=== PATIENT | female | born 1945 | race Caucasian/White ===

== ENCOUNTER → 2019-12-22 10:15 | Outpatient (CLI) | payer MEDICARE, SELFPAY ==
--- NOTE | ~2019-12-22 | MM_ITS ---
EXAMINATION: MM screening [facility] BI w dave HISTORY: Screening mammogram TECHNIQUE: Craniocaudal and mediolateral oblique 3-D tomosynthesis images were obtained and synthetic 2-D images were generated. CAD analysis was submitted and interpreted. COMPARISON: 11/29/2018, 11/09/2017, 10/15/2016 bilateral digital screening mammogram examinations BREAST PARENCHYMAL COMPOSITION: The breasts are almost entirely fatty. FINDINGS: Stable circumscribed benign intramammary lymph node on the left, upper outer quadrant. Ther e is no evidence of suspicious mass, calcification, or architectural distortion to suggest malignancy in either breast. There has been no suspicious interval change. IMPRESSION: 1. No mammographic evidence of malignancy. 2. Recommend routine screening mammography in one year. BI-RADS Category 2: Benign finding(s). Reviewed, dictated and finalized at location A. SALTER
--- NOTE | ~2019-12-22 | DEXA_ITS ---
Bone Density Report Name: Chelsea Thomas Age: 74 Sex: Female Ethnicity: White Date of : 1945 Indication: postmenopausal; screening for osteoporosis; height loss; Referring Provider: AKIL PIMENTEL Study: Bone densitometry was performed. Exam Date: December 22, 2019 Accession number: [id number] Bone Density: Region BMD T-score Z-score Classification AP Spine (L1-L4) 1.046 0.0 2.3 Normal Femoral Neck (Left) 0.724 -1.1 0.8 Osteopenia Total Hip (Left) 0.952 0.1 1.8 Normal Femoral Neck (Right) 0.758 -0.8 1.1 Normal Total Hip (Right) 0.948 0.0 1.7 Normal Total Hip Mean 0.950 0.1 1.8 Normal World Health Organization criteria for BMD impression classify patients as: Normal (T-score at or above -1.0), Osteopenia (T-score between -1.0 and -2.5), or Osteoporosis (T-score at or below -2.5). 10-year Fracture Risk(1): Major Osteoporotic Fracture 8.9% Hip Fracture 1.2% Reported Risk Factors: [place] (), Neck BMD=0.724, BMI=35.8 (1) FRAX(R) Version 3.08. Fracture probability calculated for an untreated patient. Fracture probability may be lower if the patient has received treatment. Previous Exams: Region Exam Age BMD T-score BMD Change BMD Change Date g/cm2 vs Baseline vs Previous AP Spine(L1-L4) 12/22/2019 74 1.046 0.0 -0.046 0.031 10/15/2016 70 1.015 -0.3 -0.078* -0.025* 08/29/2013 67 1.039 -0.1 -0.053* -0.001 07/18/2010 64 1.040 -0.1 -0.052* -0.014 07/15/2007 61 1.054 0.1 -0.038* -0.038* 04/01/2005 59 1.092 0.4 Total Hip(Left) 12/22/2019 74 0.952 0.1 -0.099 -0.023 10/15/2016 70 0.976 0.3 -0.075* 0.117* 08/29/2013 67 0.859 -0.7 -0.192* -0.078* 07/18/2010 64 0.937 0.0 -0.114* -0.004 07/15/2007 61 0.941 0.0 -0.110* -0.110* 04/01/2005 59 1.051 0.9 Total Hip(Right) 12/22/2019 74 0.948 0.0 -0.039 0.012 10/15/2016 70 0.936 -0.1 -0.051* 0.032* 08/29/2013 67 0.904 -0.3 -0.083* -0.062* 07/18/2010 64 0.966 0.2 -0.021 0.013 07/15/2007 61 0.953 0.1 -0.034* -0.034* 04/01/2005 59 0.987 0.4 *Denotes significance at 95% confidence level, LSC for AP Spine = 0.022 g/cm2, LSC for Total Hip = 0.027 g/cm2 Clinical Information Provided by Patient:
== END ==
PROVIDERS: PCP Internal Medicine; Visit Provider Obstetrics & Gynecology Gynecology
DX: Z12.31 Encounter for screening mammogram for malignant neoplasm of breast (principal); Z78.0 Asymptomatic menopausal state; M85.852 Other specified disorders of bone density and structure, left thigh
CPT/HCPCS: 77063; 77067; 77080

== ENCOUNTER → 2021-03-14 16:02 | Outpatient (CLI) | payer MEDICARE, SELFPAY ==
--- NOTE | ~2021-03-14 | MM_ITS ---
EXAMINATION: MM screening [facility] BI w dave HISTORY: Screening TECHNIQUE: Craniocaudal and mediolateral oblique 3-D tomosynthesis images were obtained and synthetic 2-D images were generated. CAD analysis was submitted and interpreted. COMPARISON: Comparison to multiple prior studies sequentially, with oldest reviewed study dated 11/2014. BREAST PARENCHYMAL COMPOSITION: Breast composed of scattered areas of fibroglandular density. FINDINGS: There is no evidence of suspicious mass, calcification, or architectural distortion to sugg est malignancy in either breast. There has been no suspicious interval change. IMPRESSION: 1. No mammographic evidence of malignancy. 2. Recommend routine screening mammography in one year. BI-RADS Category 1: Negative Reviewed, dictated and finalized at location A.
== END ==
PROVIDERS: PCP Internal Medicine; Visit Provider Obstetrics & Gynecology Gynecology
DX: Z12.31 Encounter for screening mammogram for malignant neoplasm of breast (principal)
CPT/HCPCS: 77063; 77067

== ENCOUNTER 2021-09-19 02:55 | Day surgery (SDC) | payer MEDICARE, SELFPAY ==
[2021-09-16 12:47] VITALS: BMI 33.3
--- NOTE | 2021-09-16 13:05 | PC.NURSE ---
Report to the Outpatient Waiting Room, entrance under the green pavilion located off [facility], at time __0900__ on date _09/19/21_. OR Time: _1100__. - You and your visitor will be asked a series of questions to screen for COVID 19 for your protection. - A mask is required within the hospital. - Only one visitor is allowed at this time. Patient visitors will be guided where to wait when not with patient. Preoperative COVID Testing Requirements: No COVID Test needed if: (proof is required; if not received patient will have Rapid Test prior to entry) - Patient has received COVID Vaccine at least 14 days prior to procedure date or - Patient has positive COVID test result within last 90 days of surgery date. COVID Test needed if above criteria is not met If not COVID vaccinated a COVID test must be conducted within 72 hours of surgery and patient is asked to isolate self from time of testing until procedure. You will go to the [facility] for your COVID testing. The [facility] site is located at the corner of [address] [facility]. You will only be called if COVID results are positive and your surgeon may reschedule your elective surgery date. Patients may have clear liquids (water, carbonated beverages, clear teas, apple juice) until 3 hours prior to surgery with a maximum of 20 ounces. - No food from midnight until time of surgery - Infants may have breast milk until 4 hours before surgery, formula 6 hours prior to surgery. - Children will be allowed to drink immediately following surgery. If applicable, please bring a bottle or sippy cup to assist with drinking. Juice, water, soda, and popsicles are readily available. For infants on formula, please bring formula the day of surgery. Pacifiers are allowed. Take the following medications with a SIP of water the morning of surgery: NONE Medications to discontinue per physician ___ALL VITAMINS & SUPPLEMENTS OF TODAY Date to take last dose Please no make-up, nail moroccan, hairspray, perfume, deodorant, or body powder the day of surgery. No jewelry (including any body piercings) or valuables the day of surgery, leave them at home. Please take a shower or bath the night before, or the morning of, surgery with an antibacterial soap. Wear comfortable, loose fitting clothing. Children are encouraged to wear pajamas. - Jewelry must be removed prior to entering the operating room. Rings and piercings that are not removed may be cut off. - The hospital will not accept responsibility for valuables. - Please leave all valuables, including medications, at home the day of surgery. If you are going home after surgery, a licensed rivet driver must drive you home. - NO public transportation without another adult. - We recommend that an adult stay with you for 24 hours following discharge. - We also recommend that you do not drive, make important decision, drink alcoholic beverages, or take any drugs that were not prescribed by your health care provider for at least 24 hours after your discharge time. For Pediatric surgeries, we recommend two adults accompany the child home (only one inside the building at this time). Follow any additional instructions given to you from your surgeon. Telephone instructions given to ____PT and asked if any additional questions and then verbalized understanding. Patient advised to call surgeon office or pre surgery nurse liaison [phone] if any additional questions.
--- NOTE | ~2021-09-19 | XR_ITS ---
EXAMINATION: XR surgery orthopedic EXAM DATE: 09/19/2021 11:06 INDICATION: 5th Metatarsal Head Resection Lt Foot . TECHNIQUE: Fluoroscopy used during XR surgery orthopedic performed by Dr. Georgi Montoya JR MD. Radiologist was not present for the imaging or procedure. Total fluoroscopic time of 2 seconds. The DAP for this procedure was 0.17 cGycm2. A total of 2 images sent to PACS from the exam. There is n o prior study for comparison. FINDINGS: Single frontal image demonstrates left metatarsals with gas in the 5th metatarsal head res ection bed. Correlate with procedure note. IMPRESSION: Fluoroscopy used during left 5th metatarsal surgery. Reviewed, dictated and finalized at location A. HALL INSPECTOR
--- NOTE | 2021-09-19 07:12 | WPDHPUPDATE1 ---
History and Physical Update Update Date/Time: 09/19/21 07:12 History and Physical has been reviewed, including an updated exam of the patient. There are NO changes in the patient's condition. Risks, benefits, and alternatives have been discussed and questions answered. Patient agrees to proceed with procedure.
[2021-09-19] MEDS: LACTATED RINGERS 1,000 ML 30 ML IV CONT (10:06)
--- NOTE | 2021-09-19 10:08 | WPDANESEPPF ---
Anes - Initial Pre Proc Eval Procedure: Operation Date: 09/19/21 11:00 Proposed Procedures p Fifth Metatarsal Head Resection Left Foot - Georgi Montoya JR, MD Date/Time: 09/19/21 10:08 Surgeon: Georgi Montoya JR, MD Pre Op Diagnosis: Rhett Farrell Left Foot Patient Data Age: 75 Gender: F Height: 1.57 m Weight: 81.81 kg Allergies Allergy/AdvReac Type Severity Reaction Status Date / Time Penicillins Allergy Severe ITCHING Verified 09/19/21 10:05 Sulfa (Sulfonamide Allergy Mild Rash Verified 09/19/21 10:05 Antibiotics) Home Medications Medication Instructions Recorded Confirmed Type coenzyme Q10 [CoQ-10] 100 mg PO DAILY 09/16/21 09/16/21 History mecobal-levomefolat Ca-B6 phos 1 tablet PO DAILY 09/16/21 09/16/21 History [Foltanx] multivitamin [Multi-Vitamin] 1 tablet PO DAILY 09/16/21 09/16/21 History turmeric root extract 1,000 mg PO DAILY 09/16/21 09/16/21 History Patient hx anesthesia problems: none Family hx anesthesia problems: none Results Review: All pre-operative results and documents have been reviewed as part of the pre-operative evaluation. [facility] Past Medical History Medical History (Updated 09/19/21 @ 10:09 by Howie Franks MD) Obesity Surgical History Surgical History (Updated 09/19/21 @ 10:09 by Howie Franks MD) H/O arthroscopic knee surgery Social History Social History Smoking status: Never smoker Second hand tobacco smoke exposure: No Alcohol intake: never Substance use: never Substance use type: does not use Living arrangements: with family Spiritual care concerns: No Anes - Eval Final PreProcedure Day of Procedure 09/19/21 10:08 Patient weight: obese Heart: regular rate and rhythm Lungs: clear to auscultation Airway: Mallampati scale class II Neurological: alert and oriented Last oral intake: >/= 8 hours ASA classification: II Emergent: no Anesthetic plan: proceed Anesthesia type and monitoring: general GIVS and standard monitoring Results Review: All pre-operative results and documents have been reviewed as part of the pre-operative evaluation. Informed Consent: The patient's anesthetic plan and its attendant risks and benefits were discussed with the patient/family/POA. Questions were solicited and answers provided to the satisfaction of the patient/family/POA.
[2021-09-19] MEDS: ceFAZolin 2 GM/D5W 50 ML 2 GM/50 ML BAG IVPB (10:36)
[2021-09-19 10:44] VITALS: BP 122/92; PULSE 58; RESP 14; TEMP 36.6; O2SAT 99; BMI 49.0
[2021-09-19 11:15] VITALS: BP 106/62; PULSE 59; RESP 14; O2SAT 96
--- NOTE | 2021-09-19 11:26 | W.PM.PROC2 ---
Procedure Note - Detailed Date of Procedure 09/19/21 Pre-op Diagnosis Rhett Mcdowellion Left Foot Post-op Diagnosis same Procedure Performed Fifth metatarsal head resection left foot Surgeon Georgi Montoya JR, BERRY Anesthesia MAC and local Description of Procedure Under mild sedation, the patient was brought in to the operating room, placed on the operating table in the supine position. A pneumatic ankle tourniquet was placed about the patient's left ankle. Following monitored anesthesia care, local anesthesia was obtained about the patients left foot utilizing 20 mL of a 1:1 mixture of 2% Lidocaine plain and 0.5% Marcaine plain. The foot was then scrubbed, prepped, and draped in the usual aseptic manner. An Esmarch bandage was then used to exsanguinate the patient's foot and the pneumatic ankle tourniquet was then inflated. Attention was directed to the dorsal lateral aspect of the fifth metatarsal head where a 2 cm incision was made just lateral to the extensor digitorum longus tendon to the fifth digit to the shaft of the fifth metatarsal. The incision was continued deep down through the subcutaneous tissues using sharp and blunt dissection. All bleeders were cauterized as necessary.A full-length periosteal incision was made overlying the fifth metatarsal distally. A McGlamry Elevator was used to free the plantar structures to the fifth metatarsal head. Next, a sagittal bone saw was used to resect the head of the fifth metatarsal proximal at the neck of the 5th metatarsal. The fifth metatarsal was removed from the operative site and placed on the back table and discarded. No abnormalities to the head of the fifth metatarsal. Fluoroscopy was used to make sure that the resected distal fifth metatarsal was adequate. The edges were smoothed out with a bone rasp. Next, the periosteum and capsular structures overlying the 5th metatarsophalangeal joints were reapproximated with 3-0 Vicryl. Next, subcutaneous structures were reapproximated and coapted utilizing 4-0 Vicryl. Next, the skin was reapproximated and coapted utilizing 4-0 Monocryl in running subcuticular suture fashion technique. Upon completion of the procedure, the incision was dressed with Adaptic, 4 x 4's, Kerlix, and Coban. The pneumatic ankle tourniquet was then deflated and a prompt hyperemic response noted to all digits of the foot. A surgical shoe was then applied. The patient did very well with the procedure and the anesthesia. The patient was transferred to the recovery room with vital signs stable and vascular status intact to all toes of the affected foot. Following a period of postoperative monitoring, the patient will be discharged home on the following written and oral postoperative instructions: 1. Keep the dressing clean, dry, and intact. Use a cast protector bag with showers. 2. The patient should use a surgical shoe for ambulation postoperatively. 3. The patient should be on bedrest with bathroom privileges and elevate the affected foot when at rest. 4. The patient to contact Dr. Montoya for all postop care and if any problems arise. 5. Prescriptions were written for Percocet 5/325 dispensed 40 to be taken 1 p.o. q.4 to 6 hours as needed for severe pain. 6. Take one Aspirin 325mg every 24hours for two weeks post operatively. Estimated Blood Loss 1 Drains No Packing No Pathology yes (Fifth metatarsal head sent for gross and histopathology) Complications No immediate complications Condition stable Disposition same day
[2021-09-19 11:45] VITALS: BP 108/65; PULSE 51; RESP 14; O2SAT 96
[2021-09-19 12:15] VITALS: BP 126/73; PULSE 50; RESP 14
[2021-09-19 12:30] VITALS: BP 127/66; PULSE 53; RESP 14
== END 2021-09-19 12:40 | disposition home or self-care (01) ==
PROVIDERS: PCP Internal Medicine; Visit Provider Podiatrist Foot & Ankle Surgery
PROC: (CPT 28104; principal; 2021-09-19 11:00)
DX: M21.622 Bunionette of left foot (principal); E66.9 Obesity, unspecified; Z68.42 Body mass index [BMI] 45.0-49.9, adult
CPT/HCPCS: 28113; 88304; 88309; 88311; J0690; J2704; J3010; J7120

== ENCOUNTER → 2022-03-16 10:12 | Outpatient (CLI) | payer MEDICARE, SELFPAY ==
--- NOTE | ~2022-03-16 | MM_ITS ---
EXAMINATION: MM screening carlos BI w dave HISTORY: Screening TECHNIQUE: Craniocaudal and mediolateral oblique 3-D tomosynthesis images were obtained and synthetic 2-D images were generated. CAD analysis was submitted and interpreted. COMPARISON: Comparison to multiple prior studies sequentially, with oldest reviewed study dated 11/2014. BREAST PARENCHYMAL COMPOSITION: There are scattered areas of fibroglandular density. FINDINGS: There is no evidence of suspicious mass, calcification, or architectural distortion to sugg est malignancy in either breast. There has been no suspicious interval change. IMPRESSION: 1. No mammographic evidence of malignancy. 2. Recommend routine screening mammography in one year. BI-RADS Category 1: Negative Reviewed, dictated and finalized at location A.
== END ==
PROVIDERS: PCP Internal Medicine; Visit Provider Obstetrics & Gynecology Gynecology
DX: Z12.31 Encounter for screening mammogram for malignant neoplasm of breast (principal)
CPT/HCPCS: 77063; 77067

== ENCOUNTER → 2023-03-19 10:56 | Outpatient (CLI) | payer MEDICARE, SELFPAY ==
--- NOTE | ~2023-03-19 | MM_ITS ---
EXAMINATION: MM screening carlos BI w dave HISTORY: Screening mammogram, family history of breast cancer in her mother. TECHNIQUE: Craniocaudal and mediolateral oblique 3-D tomosynthesis images were obtained and synthetic 2-D images were generated. CAD analysis was submitted and interpreted. COMPARISON: 03/16/2022, 03/14/2021, 12/22/2019 BREAST PARENCHYMAL COMPOSITION:There are scattered areas of fibroglandular density. FINDINGS: Stable lymph node at the upper, outer left breast. No suspicious mass, calcification, or ar chitectural distortion are identified in either breast to suggest malignancy. There has been no suspi cious interval change. IMPRESSION: No mammographic evidence of malignancy. Recommend routine screening mammography in one year. BI-RADS Category 2: Benign finding(s). Reviewed, dictated and finalized at location .
--- NOTE | ~2023-03-19 | DEXA_ITS ---
Bone Density Report Name: SHANIA WRAY Age: 77 Sex: Female Ethnicity: White Date of : 1945 Indication: postmenopausal; screening for osteoporosis; height loss; Referring Provider: AKIL PIMENTEL Study: Bone densitometry was performed. Exam Date: March 19, 2023 Accession number: [id number] Bone Density: Region BMD T-score Z-score Classification AP Spine (L1-L4) 1.009 -0.3 2.1 Normal Femoral Neck (Left) 0.720 -1.2 1.0 Osteopenia Total Hip (Left) 0.944 0.0 1.9 Normal Femoral Neck (Right) 0.727 -1.1 1.0 Osteopenia Total Hip (Right) 0.902 -0.3 1.5 Normal Total Hip Mean 0.923 -0.2 1.7 Normal World Health Organization criteria for BMD impression classify patients as: Normal (T-score at or above -1.0), Osteopenia (T-score between -1.0 and -2.5), or Osteoporosis (T-score at or below -2.5). 10-year Fracture Risk(1): Major Osteoporotic Fracture 10% Hip Fracture 1.9% Reported Risk Factors: [place] (), Neck BMD=0.720, BMI=30.9 (1) FRAX(R) Version 3.08. Fracture probability calculated for an untreated patient. Fracture probability may be lower if the patient has received treatment. Previous Exams: Region Exam Age BMD T-score BMD Change BMD Change Date g/cm2 vs Baseline vs Previous AP Spine(L1-L4) 03/19/2023 77 1.009 -0.3 -0.084* -0.037 12/22/2019 74 1.046 0.0 -0.046 0.031 10/15/2016 70 1.015 -0.3 -0.078* -0.025* 08/29/2013 67 1.039 -0.1 -0.053* -0.001 07/18/2010 64 1.040 -0.1 -0.052* -0.014 07/15/2007 61 1.054 0.1 -0.038* -0.038* 04/01/2005 59 1.092 0.4 Total Hip(Left) 03/19/2023 77 0.944 0.0 -0.107* -0.008 12/22/2019 74 0.952 0.1 -0.099 -0.023 10/15/2016 70 0.976 0.3 -0.075* 0.117* 08/29/2013 67 0.859 -0.7 -0.192* -0.078* 07/18/2010 64 0.937 0.0 -0.114* -0.004 07/15/2007 61 0.941 0.0 -0.110* -0.110* 04/01/2005 59 1.051 0.9 Total Hip(Right) 03/19/2023 77 0.902 -0.3 -0.085* -0.046 12/22/2019 74 0.948 0.0 -0.039 0.012 10/15/2016 70 0.936 -0.1 -0.051* 0.032* 08/29/2013 67 0.904 -0.3 -0.083* -0.062* 07/18/2010 64 0.966 0.2 -0.021 0.013 07/15/2007 61 0.953 0.1 -0.034* -0.034* 04/01/2005 59 0.987 0.4 *Denotes significance at
== END ==
PROVIDERS: PCP Internal Medicine; Visit Provider Obstetrics & Gynecology Gynecology
DX: Z12.31 Encounter for screening mammogram for malignant neoplasm of breast (principal); Z78.0 Asymptomatic menopausal state; M85.852 Other specified disorders of bone density and structure, left thigh; M85.851 Other specified disorders of bone density and structure, right thigh
CPT/HCPCS: 77063; 77067; 77080

== ENCOUNTER 2024-04-12 13:08 | Outpatient (CLI) | payer MEDICARE, SELFPAY ==
--- NOTE | ~2024-04-12 | MM_ITS ---
EXAMINATION: MM screening carlos BI w dave HISTORY: Screening TECHNIQUE: Craniocaudal and mediolateral oblique 3-D tomosynthesis images were obtained and synthetic 2-D images were generated. CAD analysis was submitted and interpreted. COMPARISON: Comparison to multiple prior studies sequentially, with oldest reviewed study dated 12/2017. BREAST PARENCHYMAL COMPOSITION: Not Dense: Breast are almost entirely fatty. FINDINGS: There is no evidence of suspicious mass, calcification, or architectural distortion to sugg est malignancy in either breast. There has been no suspicious interval change. IMPRESSION: 1. No mammographic evidence of malignancy. 2. Recommend routine screening mammography in one year. BI-RADS Category 1: Negative Reviewed, dictated and finalized at location B.
== END 2024-04-12 13:09 ==
PROVIDERS: PCP Internal Medicine; Visit Provider Obstetrics & Gynecology Gynecology
DX: Z12.31 Encounter for screening mammogram for malignant neoplasm of breast (principal)
CPT/HCPCS: 77063; 77067

== ENCOUNTER 2025-03-21 10:59 | Outpatient (CLI) | payer MEDICARE, SELFPAY ==
--- NOTE | ~2025-03-21 | DEXA_ITS ---
Bone Density Report Name: SHANIA WRAY Age: 79 Sex: Female Ethnicity: White Date of : 1945 Indication: postmenopausal; screening for osteoporosis; height loss; Referring Provider: Zechariah, Eloise Study: Bone densitometry was performed. Exam Date: March 21, 2025 Accession number: [id number] Bone Density: Region BMD T-score Z-score Classification AP Spine(L1-L4) 1.012 -0.3 2.3 Normal Femoral Neck (Left) 0.679 -1.5 0.7 Osteopenia Total Hip (Left) 0.884 -0.5 1.5 Normal Femoral Neck (Right) 0.673 -1.6 0.6 Osteopenia Total Hip (Right) 0.871 -0.6 1.4 Normal Total Hip Mean 0.877 -0.6 1.5 Normal World Health Organization criteria for BMD impression classify patients as: Normal (T-score at or above -1.0), Osteopenia (T-score between -1.0 and -2.5), or Osteoporosis (T-score at or below -2.5). 10-year Fracture Risk(1): Major Osteoporotic Fracture 12% Hip Fracture 2.7% Reported Risk Factors: [place] (), Neck BMD=0.679, BMI=32.8 (1) FRAX(R) Version 3.08. Fracture probability calculated for an untreated patient. Fracture probability may be lower if the patient has received treatment. Previous Exams: -- Region Exam Age BMD T-score BMD Change BMD Change Date g/cm2 vs Baseline vs Previous -- AP Spine (L1-L4) 03/21/2025 79 1.012 -0.3 -7.3%* 0.4% 03/19/2023 77 1.009 -0.3 -7.6%* -3.6%# 12/22/2019 74 1.046 0.0 -4.2%# 3.1%# 10/15/2016 70 1.015 -0.3 -7.1%* -2.4%* 08/29/2013 67 1.039 -0.1 -4.8%* -0.1% 07/18/2010 64 1.040 -0.1 -4.7%* -1.3% 07/15/2007 61 1.054 0.1 -3.5%* -3.5%* 04/01/2005 59 1.092 0.4 Total Hip(Left) 03/21/2025 79 0.884 -0.5 -16.0%* -6.4%* 03/19/2023 77 0.944 0.0 -10.2%* -0.8%# 12/22/2019 74 0.952 0.1 -9.4%# -2.4%# 10/15/2016 70 0.976 0.3 -7.2%* 13.6%* 08/29/2013 67 0.859 -0.7 -18.3%* -8.3%* 07/18/2010 64 0.937 0.0 -10.9%* -0.5% 07/15/2007 61 0.941 0.0 -10.5%* -10.5%* 04/01/2005 59 1.051 0.9 Total Hip(Right) 03/21/2025 79 0.871 -0.6 -3.4%* -3.4%* 03/19/2023 77 0.902 -0.3 -- *Denotes significance at 95% confidence level, LSC for AP Spine = 0.022 g/cm2, LSC for Total Hip = 0.027 g/cm2 # Denotes dissimilar scan types or analysis methods Clinical Information Provided by Patient: Has used the following medications: Vitamin D, Calcium Patient maximum height was 63 Menopause Age: 61 Drinks caffeinated beverages Onset of menses at age 13 Number of children 2 Impression: The patient has low bone mass, based on the Right Femoral Neck T-score. The patient has an estimated ten-year risk of hip fracture of 2.7% and an estimated ten-year risk of major fracture of 12%, based on the WHO FRAX algorithm. The BMD for the Total Hip(Left) decreased, changing by -6.4% since the last DXA exam. The BMD for the Total Hip(Right) decreased, changing by -3.4% since the last DXA exam. Discussion: BONE DENSITY IS LOW AT ONE OR MORE SKELETAL SITES. This patient's lowest T-score is low at one or more skeletal sites. It meets the World Health Organization's (WHO) criteria for “low bone mass” (T-score between -1.0 and -2.5). The patient's 10-year risk of fracture as calculated by FRAX is less than the threshold where pharmacological therapy is recommended by the National Osteoporosis Foundation (NOF). However, all treatment decisions require clinical judgment and consideration of individual patient factors, including patient preferences, comorbidities, previous drug use, risk factors not captured in the FRAX model (e.g., frailty, falls, vitamin D deficiency, increased bone turnover, interval significant decline in bone density) and possible under or overestimation of fracture risk by FRAX. The patient should follow a healthful lifestyle (good nutrition with adequate calcium and vitamin D, and appropriate weight-bearing exercise). Follow-Up: Consider repeating this study in 2 years to reassess this patient's status, or sooner if there is some new clinical indication. Reported by: GOLD on 03/28/2025 8:06:00 AM. Reviewed, dictated and finalized at location A.
== END 2025-03-21 11:00 | disposition home or self-care (01) ==
PROVIDERS: PCP Nurse Practitioner; Visit Provider Nurse Practitioner
DX: Z78.0 Asymptomatic menopausal state (principal); M85.852 Other specified disorders of bone density and structure, left thigh; M85.851 Other specified disorders of bone density and structure, right thigh
CPT/HCPCS: 77080

== ENCOUNTER 2025-04-19 10:09 | Outpatient (CLI) | payer MEDICARE, SELFPAY ==
--- NOTE | ~2025-04-19 | MM_ITS ---
EXAMINATION: MM screening carlos BI w dave HISTORY: Screening TECHNIQUE: Craniocaudal and mediolateral oblique 3-D tomosynthesis images were obtained and synthetic 2-D images were generated. CAD analysis was submitted and interpreted. COMPARISON: Comparison to multiple prior studies sequentially, with oldest reviewed study dated 11/29. BREAST PARENCHYMAL COMPOSITION: Not dense: There are scattered areas of fibroglandular density. FINDINGS: There is no evidence of suspicious mass, calcification, or architectural distortion to sugg est malignancy in either breast. There has been no suspicious interval change. IMPRESSION: 1. No mammographic evidence of malignancy. 2. Recommend routine screening mammography in one year. BI-RADS Category 1: Negative Reviewed, dictated and finalized at location B.
== END 2025-04-19 10:10 | disposition home or self-care (01) ==
PROVIDERS: PCP Obstetrics & Gynecology Gynecology; Visit Provider Obstetrics & Gynecology Gynecology
DX: Z12.31 Encounter for screening mammogram for malignant neoplasm of breast (principal)
CPT/HCPCS: 77063; 77067